=== PATIENT | female | born 1940 | race Caucasian/White ===

== ENCOUNTER 2018-07-08 07:41 | Day surgery (SDC) | payer OTHER ==
[~2018-07-08] VITALS: Ht 162.6 cm; Wt 59.4 kg
--- NOTE | ~2018-07-08 | O ---
[facility] [place] [address] OPERATIVE REPORT Name: KENA MAZARIEGOS Room #: 150-14 [facility]..#: [id number] Admission: 07/08/18 ������������������ Attend Phys: Asif Zavala MD Discharge: ������������������ Date of : 40 Report #: [id number] THIS REPORT FOR: //name// CC: EDDIE Galvan , Physician staff MICHAEL Zavala DATE OF SERVICE: 07/08/2018 PREOPERATIVE DIAGNOSIS: Tumor of left lower lid. POSTOPERATIVE DIAGNOSIS: Tumor of left lower lid, basal cell carcinoma. PROCEDURE: Excision of tumor of left lower lid with frozen section, control of margins and myocutaneous flap repair of defect. SURGEON: Asif Zavala M.D. CHROMOSOMAL DISORDERS COUNSELOR: None. ANESTHESIA: MAC. COMPLICATIONS: None. INDICATIONS FOR SURGERY: This pleasant 78-year-old woman has a nodular ulcerative lesion in her left lower lid that appears to most likely be frankly neoplastic. She presents today for excision of this lesion with frozen section, control of tumor, extirpation and subsequent reconstruction of that defect. Informed consent was obtained to include but not limited to the potential risk for loss of vision, bleeding, infection, failure to improve the problem, and the potential need for further surgery or treatment. DESCRIPTION OF PROCEDURE: The patient was taken to the operating room where 2% Xylocaine with epinephrine mixed with equal parts of 0.75% Marcaine with Wydase was administered transcutaneously and transconjunctivally to the left lower lid, the left cheek, the left lateral canthus and the left medial canthus. The patient was subsequently prepped and draped in the usual sterile fashion. A fine tip skin marking pen was then utilized to outline the lesion including 2 mm of normal appearing tissue around its margins. The incisions were then made perpendicularly across the eyelid margin and then drawn to a point in the premalar tissues. The specimen was then oriented on a drawing for the waiting pathologist. The field was then dried with diligent pinpoint monopolar cautery. The pathologist snap froze that specimen and found that the lesion was indeed a basal cell carcinoma as the margins were clear. [address] [address] OPERATIVE REPORT Name: KENA MAZARIEGOS [place] Room #: 150-14 [facility]..#: [id number] Admission: 07/08/18 ������������������ Attend Phys: Asif Zavala MD Discharge: ������������������ Date of : 40 Report #: [id number] The defect in the left lower lid was somewhat larger than it initially been anticipated. A subcutaneous dissection was undertaken laterally and superiorly past the lateral canthus to allow a myocutaneous flap to be rotated. Hemostasis was then re-achieved. The flap was then advanced and secured with interrupted buried 5-0 Vicryl sutures deep. The tarsal plate was reapproximated with interrupted 5-0 Vicryl sutures. The eyelid margin was reapproximated with interrupted 7-0 Vicryl sutures. Subcutaneous structures and the skin were then closed with interrupted buried Vicryl sutures and then 6-0 plain gut sutures for final closure. The wound was then cleaned and dressed with erythromycin ophthalmic ointment. The patient subsequently transported to the recovery area having tolerated the procedure well with no anesthetic or operative complications being noted. ��������������������������������������������� ���������������������������������������� By: ��������������������������������������������� [id number] Asif Zavala MD /nt
[~2018-07-08 07:41] MED LIST: CALCIUM 500 MG1 EAC2 PO; CLARITIN10 MG PO; FLAXSEED-FISH-400 MG PO; LISINOPRIL-HCT1 EAC1 PO; LOPRESSOR25 PO
[2018-07-08 09:28] VITALS: BP 139/64
== END 2018-07-08 11:49 | disposition home or self-care (01) ==
LOC: OR 07:41 → TBA 07:41 → OR 09:47
DX: C44.1192 Basal cell carcinoma of skin of left lower eyelid, including canthus (principal); I10 Essential (primary) hypertension; M19.90 Unspecified osteoarthritis, unspecified site; F41.9 Anxiety disorder, unspecified; Z85.828 Personal history of other malignant neoplasm of skin; Z98.890 Other specified postprocedural states; Z90.710 Acquired absence of both cervix and uterus; Z79.899 Other long term (current) drug therapy
CPT/HCPCS: 50010; 50101; 50386; 50398; 51636; 56528; 56531; 62110; 62850; 70005